=== PATIENT | male | born 1955 | race Two or more races ===

== ENCOUNTER 2017-09-03 12:38 | Emergency (ER) | payer SELFPAY ==
[2017-09-03 12:47] VITALS: BP 205/95; PULSE 90; RESP 18; TEMP 98.6; O2SAT 97
--- NOTE | 2017-09-03 13:21 | EDPHY ---
HPI/HX/ROS/PE/MDM Narrative: CHIEF COMPLAINT: Lower jaw pain HPI: The patient is a 61 y/o male with a history of diabetes complaining of lower jaw /tooth pain, onset 5 days ago. The pain became exacerbated 3 days ago and made it difficult to sleep. He decided to present to the emergency department today due to the pain. He denies seeing or having a dentist. No fever, chills, numbness, paresthesias, sore throat. A commercial real estate associate was used to obtain the HPI and exam. REVIEW OF SYSTEMS: Aside from elements discussed in the HPI, a comprehensive 10-point review of systems was reviewed and is negative. PMH: Diabetes (compliant with medications), hypertension SOCIAL HISTORY: at bedside, lives in [facility] PHYSICAL EXAM: General: Patient is alert, in no acute distress. ENT: Eyes are normal to inspection. Fracture of right lower 1st molar, poor dental care. Respiratory: No respiratory distress. Breath sounds normal bilaterally. Neuro: Oriented x3. Normal motor function. Normal sensory function. Portions of this note were transcribed by an ED scribe. I personally performed the history, physical exam, and medical decision making; and confirm the accuracy of the information in the transcribed note. ED Course: 1349: I assessed the patient and advised him to follow up with [facility] in the next week due to his fractured tooth. 1tab PO Percocet administered, I have also prescribed him Penicillin. Return precautions provided; patient is comfortable with this plan. 1640: I left a message with [facility] regarding this patient, as they have not responded to my earlier page. - Data Points Medications Given: Discontinued Medications Oxycodone/Acetaminophen (Percocet 5/325) 1 tab PO EDNOW ONE Stop: 09/03/17 13:49 Last Admin: 09/03/17 14:04 Dose: 1 tab General Time Seen by Provider: 09/03/17 13:18 Initial Vital Signs: Initial Vital Signs Temperature (C) 37.0 C 09/03/17 12:44 Heart Rate 90 09/03/17 12:44 Respiratory Rate 18 09/03/17 12:44 Blood Pressure 205/95 H 09/03/17 12:44 O2 Sat (%) 97 09/03/17 12:44 O2 Delivery Mode Room Air Allergies/Adverse Reactions: No Known Allergies Allergy (Unverified 09/03/17 12:43) Home Medications: Medication Instructions Recorded Penicillin V Potassium [Pen Vk 500 mg PO BID 10 Days tab 09/03/17 500mg (*)] oxyCODONE/APAP 5/325 [Percocet 1 - 2 tab PO Q4H PRN #7 tab 09/03/17 5/325 (*)] Departure - Departure Disposition: Home, Routine, Self-Care Clinical Impression: Need for dental care Fractured tooth Qualifiers: Encounter type: initial encounter Fracture type: closed Qualified Code(s): S02.5XXA - Fracture of tooth (traumatic), initial encounter for closed fracture Condition: Good Instructions: Toothache (ED) Additional Instructions: Take Oxycodone as prescribed for pain. Take Penicillin as prescribed, make sure to finish the entire prescription even if you symptoms improve. Follow-up with your dentist within one week, you have been referred to [facility]. Return to the ED for fever, difficulty swallowing, increase in swelling or other concerns. [place] Oxycodone adam fue recetado. [place] Penicilina adam fue recetado, asegurese de terminar la receta entera aunque vicenta sintomas mejoren. Fije ricardo de seguimietno con el dentista para la semana entrante, se a remetido un volante para [facility]. Regrese al departamento de Emergencia si tiene fiebre , dificultad para tragar, aumento de hinchazon o por otra preocupacion. Referrals: [facility] [Outside] - As per Instructions Prescriptions: oxyCODONE/APAP 5/325 [Percocet 5/325 (*)] 1 - 2 tab PO Q4H PRN #7 tab PRN Reason: Pain, Severe Penicillin V Potassium [Pen Vk 500mg (*)] 500 mg PO BID 10 Days tab Print Language: Hong Konger Report Scribed for: Justino Moncada Report Scribed by: Danielle Moses Date of Report: 09/03/17 Time of Report: 13:21
[2017-09-03] MEDS ORDERED: OXYCODONE/APAP 5/325 TAB PO ONE (13:48)
== END 2017-09-03 14:08 | disposition home or self-care (01) ==
DX: K03.81 Cracked tooth (principal); I10 Essential (primary) hypertension; E11.9 Type 2 diabetes mellitus without complications

== ENCOUNTER 2018-08-31 10:25 | Emergency (ER) | payer OTHER ==
--- NOTE | 2018-08-31 10:45 | EDPHY ---
H & P Time Seen by Provider: 08/31/18 10:31 HPI/ROS: HPI Right shoulder injury. 62-year-old male by private vehicle. He reports that this morning at 8:30 a.m. He was reaching up behind his back to grab something when he felt a sudden snap in his right shoulder. He complains of isolated right shoulder pain which is worse with movement. He reports that he has injured the right shoulder in the past but can't specify the nature of this injury. He is right-hand dominant. He denies any loss of sensation or weakness in his right hand or right upper extremity. No other injury or complaint. History and physical exam obtained with paving supervisor. ROS: Constitutional: No fever, no chills. No weakness. Musculoskeletal: No back pain. No neck pain. As above. Skin: No rashes. No lacerations or abrasions. Neurological: No focal weakness or altered sensation. Past medical history: Hypertension. Dental issues. Social history: Nonsmoker. Here by himself. No alcohol. Physical Exam: General Appearance: Alert, no distress. This patient is responding to questions appropriately and in full sentences. This patient appears well- hydrated and well-nourished. Head: Normocephalic atraumatic. Eyes: Pupils equal and round no pallor or injection. No lid edema, erythema or injection. Right shoulder exam: Right upper extremity is neurovascularly intact. The axillary nerve distribution is intact. No asymmetry in comparison of the right shoulder to the left shoulder. There is no tenderness on palpation over the clavicle. He does have pain with any attempted passive or active range of motion involving the right glenohumeral joint. There is no tenderness on palpation over the right AC joint. Neurological: Motor sensory function is grossly intact. Cranial nerves are normal. Gait is normal. Skin: Warm and dry, no rashes. Musculoskeletal: Neck is supple and nontender. Extremities are symmetrical. All joints range without pain or impingement. Psychiatric: No agitation. No depression. Database: EKG: Imaging: Right shoulder x-ray series: Negative for fracture, subluxation, dislocation. Interpreted by me. Procedures: Emergency department course: Triage vital signs reviewed. After my initial evaluation, the patient was sent for a right shoulder x-ray series. 11:25 a.m., the patient was re-evaluated, rest doing comfortably at this time. He was given 600 mg of ibuprofen. His right upper extremity was placed in a sling. I discussed results of his x-rays which are unremarkable. I am more concerned about a rotator cuff injury at this time. I feel he is safe for discharge with follow-up with his primary care physician for re-evaluation and referral for an outpatient MRI of his right shoulder. This was discussed with him in detail. He feels comfortable with this plan. Return to emergency department precautions were discussed with him. All of his questions were answered. He was discharged from the emergency department in good condition. Differential Diagnosis: The differential diagnosis on this patient includes but is not limited to rotator cuff injury, right shoulder dislocation, subluxation, AC joint injury, rotator cuff injury. This represents a partial list of diagnoses considered. These considerations are based on history, physical exam, past history, reassessment and diagnostic testing. Smoking Status: Never smoked Constitutional: Initial Vital Signs Temperature (C) 36.9 C 08/31/18 10:36 Heart Rate 72 08/31/18 10:36 Respiratory Rate 18 08/31/18 10:36 Blood Pressure 220/94 H 08/31/18 10:36 O2 Sat (%) 96 08/31/18 10:36 O2 Delivery Mode Room Air Allergies/Adverse Reactions: No Known Allergies Allergy (Verified 08/31/18 10:36) Home Medications: Medication Instructions Recorded Bp Med 08/31/18 Insulin Syringe 08/31/18 Medical Decision Making - Diagnostics Imaging Results: Imaging Impressions Shoulder X-Ray 08/31/18 10:41 Impression: Acromioclavicular and glenohumeral osteoarthritis. - Data Points Medications Given: Discontinued Medications Ibuprofen (Motrin) 600 mg PO EDNOW ONE Stop: 08/31/18 11:28 Last Admin: 08/31/18 11:36 Dose: 600 mg Departure - Departure Disposition: Home, Routine, Self-Care Clinical Impression: Right shoulder injury Condition: Good Instructions: Rotator Cuff Injury (ED), Shoulder Sprain (ED) Additional Instructions: Read and follow provided instructions. Follow-up with your primary care physician on Monday for re-evaluation of your right shoulder injuries discussed. I believe you have a rotator cuff injury. Your primary care physician can arrange for you to have an MRI of your right shoulder which will be diagnostic for this type of injury. Ibuprofen dosin mg every 6 hours with meals for the next 3 days only. Take only as needed for pain. Take a right upper extremity out of the sling routinely, every couple of hours and just gently rotate your shoulder as discussed to maintain some flexibility and range of motion. Return to the emergency department for worsening pain, discoloration, swelling, loss of sensation in your right arm or other serious concerns. Take your blood pressure medications as prescribed. Your blood pressure is elevated in the emergency department. Follow-up with your primary care physician for re-evaluation of your elevated blood pressure and your medications. Maddi y siga las instrucciones provistas. Seguimiento con hansen medico de cuidado primario el [place] para simi re-evaluacion de las lesiones del hombro derecho luis lo discutimos. Yo creo que tiene simi lesion del manguito rotador. Hansen proveedor de cuidado primario puede agendarle simi resonancia magnetica (MRI por vicenta siglas [facility] de hansen hombro derecho la cual diagnosticara karmen tipo de lesion. Dosis de Ibuprofen: 600 mg cada 6 horas con comidas por los siguientes 3 barraza. [place] solamente luis sea necesario para el dolor. [place] la extremidad derecha superior fuera del cabestrillo rutinariamante, cada par de horas y gentilmante rote el hombro luis se discutio para mantener la flexibilidad y el rango de movimiento. Regrese al departamento de emergencias si el dolor empeora, discoloracion, hinchazon, perdida de la sensacion del brazo derecho u otras preocupaciones serias. Referrals: [facility] [Other] - As per Instructions Stand Alone Forms: Work Comp Follow Up Print Language: French
[2018-08-31] MEDS ORDERED: IBUPROFEN 600 MG TAB PO ONE (11:27)
[2018-08-31 11:40] VITALS: BP 183/108
== END 2018-08-31 11:39 | disposition home or self-care (01) ==
LOC: CED 10:25
DX: S43.401A Unspecified sprain of right shoulder joint, initial encounter (principal); I10 Essential (primary) hypertension; X50.9XXA Other and unspecified overexertion or strenuous movements or postures, initial encounter
CPT/HCPCS: 73030-PO; 99283-ER; A4565-ER